=== PATIENT | male | born 1950 | race Caucasian/White ===

== ENCOUNTER 2024-01-31 05:58 | Day surgery (SDC) | payer OTHER, MEDICARE ==
[~2024-01-31] VITALS: Ht 180.3 cm; Wt 91.2 kg
[~2024-01-31 05:58] MED LIST: AMLO1TAB24 PO; ATOR80TA59 PO; COQ150CH PO; FLOM0.4C39 PO; LISI20TA33 PO; METF500T13 PO; METO1TAB7 PO; OFLO5DRO OD; REPA0.5T2 PO; SITA50TAB PO; XARE20TA PO
[2024-01-31] MEDS ORDERED: PHENYLEPHRINE 10% OPHTH SOL 5ML OD PRN (06:00)
[2024-01-31] MEDS ORDERED: INSULIN LISPRO (NovoLOG) PER UNIT SC PRN (06:20)
[2024-01-31] MEDS: LIDOCAINE 3.5 % 1ML OPHTH TOPICAL GEL OU ONE (06:56)
[2024-01-31] MEDS: CYCLOPENTOLATE 1% OPHTH SOLN 2ML BTL OD SCH (06:56)
[2024-01-31] MEDS: OFLOXACIN 0.3 % (OCUFLOX) OPTH SOL 5ML OD ONE (06:56)
[2024-01-31] MEDS: PHENYLEPHRINE 2.5% OPHTH SOL 2ML OD SCH (06:57)
[2024-01-31] MEDS: TROPICAMIDE 1% OPHTH SOLN 15ML OD SCH (06:57)
[2024-01-31] MEDS ORDERED: MIDAZOLAM INJ 2MG/2ML VIAL As Ordered ONE (07:01)
[2024-01-31] MEDS ORDERED: fentaNYL 100 MCG/2 ML INJECTION As Ordered ONE (07:01)
[2024-01-31] MEDS: LIDOCAINE 1% SDV 5ML VIAL As Ordered ONE (07:56)
[2024-01-31] MEDS: BSS IRRIG/VANCO(10MG)/TOBRA(5MG)/EPINEPH(1:1000-0.5CC)500ML BAG-ORONLY As Ordered ONE (07:56)
[2024-01-31] MEDS: CEFUROXIME 1MG/0.1ML INTRACAMERAL INJ As Ordered ONE (08:04)
[2024-01-31 08:09] VITALS: BP 140/64; TEMP 97; O2SAT 99
== END 2024-01-31 08:28 | disposition home or self-care (01) ==
LOC: M SDC 05:58
PROVIDERS: ATTEND Ophthalmology
DX: E11.36 Type 2 diabetes mellitus with diabetic cataract (principal); H25.11 Age-related nuclear cataract, right eye; I48.91 Unspecified atrial fibrillation; C61 Malignant neoplasm of prostate; I10 Essential (primary) hypertension; E78.00 Pure hypercholesterolemia, unspecified; Z79.899 Other long term (current) drug therapy; Z79.01 Long term (current) use of anticoagulants; Z79.84 Long term (current) use of oral hypoglycemic drugs; Z79.622 Long term (current) use of Janus kinase inhibitor; Z85.05 Personal history of malignant neoplasm of liver; Z92.3 Personal history of irradiation; Z90.49 Acquired absence of other specified parts of digestive tract
CPT/HCPCS: 66984; J0697; J2250; J3010; V2632

== ENCOUNTER 2024-02-14 08:34 | Day surgery (SDC) | payer MEDICARE, OTHER ==
[~2024-02-14] VITALS: Ht 180.3 cm; Wt 89.8 kg
[~2024-02-14 08:34] MED LIST changes: +PHENYLEPHRINE 10% OPHTH SOL 5ML OS PRN
[2024-02-14] MEDS: OFLOXACIN 0.3 % (OCUFLOX) OPTH SOL 5ML OS ONE (10:04)
[2024-02-14] MEDS: TROPICAMIDE 1% OPHTH SOLN 15ML OS SCH (10:05)
[2024-02-14] MEDS: LIDOCAINE 3.5 % 1ML OPHTH TOPICAL GEL OU ONE (10:05)
[2024-02-14] MEDS: CYCLOPENTOLATE 1% OPHTH SOLN 2ML BTL OS SCH (10:05)
[2024-02-14] MEDS: PHENYLEPHRINE 2.5% OPHTH SOL 2ML OS SCH (10:05)
[2024-02-14] MEDS ORDERED: fentaNYL 100 MCG/2 ML INJECTION As Ordered ONE (10:55)
[2024-02-14] MEDS ORDERED: MIDAZOLAM INJ 2MG/2ML VIAL As Ordered ONE (10:55)
[2024-02-14] MEDS: LIDOCAINE 1% SDV 5ML VIAL As Ordered ONE (11:12)
[2024-02-14] MEDS: BSS IRRIG/VANCO(10MG)/TOBRA(5MG)/EPINEPH(1:1000-0.5CC)500ML BAG-ORONLY As Ordered ONE (11:18)
[2024-02-14] MEDS: CEFUROXIME 1MG/0.1ML INTRACAMERAL INJ As Ordered ONE (11:19)
[2024-02-14 11:23] VITALS: BP 164/74; TEMP 97.1; O2SAT 99
== END 2024-02-14 11:38 | disposition home or self-care (01) ==
LOC: M SDC 08:34
PROVIDERS: ATTEND Ophthalmology
DX: H25.12 Age-related nuclear cataract, left eye (principal); I48.91 Unspecified atrial fibrillation; I10 Essential (primary) hypertension; E11.9 Type 2 diabetes mellitus without complications; E78.5 Hyperlipidemia, unspecified; Z95.0 Presence of cardiac pacemaker; Z85.46 Personal history of malignant neoplasm of prostate; Z79.01 Long term (current) use of anticoagulants; Z79.84 Long term (current) use of oral hypoglycemic drugs; Z79.899 Other long term (current) drug therapy
CPT/HCPCS: 66984; J0697; J2250; J3010; V2632